=== PATIENT | male | born 1960 | race American Indian/Alaskan Native ===

== ENCOUNTER 2018-04-22 13:06 | Emergency (ER) | payer OTHER ==
--- NOTE | 2018-04-22 13:32 | C.PDOC ---
History Of Present Illness 57 y/o male presents to the ER with coworker for evaluation of right knee pain which occurred today. Patient states that he was at work when he fell into a sink hole covered by leaves. Patient reports that his left knee " bent back" and he suffered a medial knee contusion.Denies having weakness and numbness. Time Seen by Provider: 04/22/18 13:17 Chief Complaint (Nursing): Lower Extremity Problem/Injury History Per: Patient History/Exam Limitations: no limitations Onset/Duration Of Symptoms: Hrs Current Symptoms Are (Timing): Still Present Severity: Moderate Past Medical History Reviewed: Historical Data, Nursing Documentation, Vital Signs Vital Signs: Last Vital Signs Temp 97.2 F L 04/22/18 13:08 Pulse 79 04/22/18 13:08 Resp 20 04/22/18 13:08 BP 153/101 H 04/22/18 13:08 Pulse Ox 99 04/22/18 13:08 - Medical History PMH: Arthritis Other Surgeries: Hx of surgeries Family History: States: No Known Family Hx - Social History Hx Alcohol Use: No Hx Substance Use: No - Immunization History Hx Tetanus Toxoid Vaccination: No Hx Influenza Vaccination: No Hx Pneumococcal Vaccination: No Review Of Systems Except As Marked, All Systems Reviewed And Found Negative. Musculoskeletal: Positive for: Other (left knee pain) Neurological: Negative for: Weakness, Numbness Physical Exam - Physical Exam Appears: Non-toxic, No Acute Distress Skin: Normal Color, Warm, Dry Head: Atraumatic, Normacephalic Eye(s): bilateral: Normal Inspection Nose: Normal Oral Mucosa: Moist Neck: Supple Chest: Symmetrical Extremity: Normal ROM, Tenderness (tenderness to medial aspect of right knee), Other ( no laxity and no joint effusion to right knee) Neurological/Psych: Oriented x3, Normal Speech ED Course And Treatment O2 Sat by Pulse Oximetry: 99 Pulse Ox Interpretation: Normal - Other Rad R knee X-Ray: Interpreted by Me (neg) Medical Decision Making Medical Decision Making: R medial knee contusion no knee joint derrangement x-ray neg ice/NSAIDS Disposition Doctor Will See Patient In The: Office Counseled Patient/Family Regarding: Studies Performed, Diagnosis - Disposition Referrals: [facility] [Outside] [facility] [Outside] [facility] [Outside] Disposition: HOME/ ROUTINE Disposition Time: 14:07 Condition: GOOD Additional Instructions: ice packs 1/2 hour per hour, nothing hot no hot shower/hot tub motrin/advil/ibuprofen 600 mg every 6 hours as needed outpatient follow-up as needed. Instructions: Contusion (DC) Forms: [facility] (Yoruba), Work Excuse - Clinical Impression Clinical Impression: Knee contusion - Scribe Statement The provider has reviewed the documentation as recorded by the Neetaibe Isidra Taylor Provider Attestation: All medical record entries made by the Neeta[facility]gorge were at my direction and personally dictated by me. I have reviewed the chart and agree that the record accurately reflects my personal performance of the history, physical exam, medical decision making, and the department course for this patient. I have also personally directed, reviewed, and agree with the discharge instructions and disposition.
[2018-04-22 14:33] VITALS: BP 147/94; PULSE 69; RESP 18; TEMP 97.9
--- NOTE | 2018-04-22 14:47 | RAD ---
Date of service: 04/22/2018 PROCEDURE: Right Knee Radiographs. HISTORY: R medial knee contusion COMPARISON: None. FINDINGS: BONES: No fracture. Exuberant osteophytosis present. JOINTS: Arthrosis. Patellofemoral and lateral femoral tibial compartments most narrowed. JOINT EFFUSION: Suggested OTHER FINDINGS: None. IMPRESSION: No fracture or lytic lesion. 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 Comments: Study marked for PA review .
[2018-04-22 16:03] VITALS: O2SAT 99
== END 2018-04-22 14:16 | disposition home or self-care (01) ==
LOC: C.ER 13:06
DX: S80.01XA Contusion of right knee, initial encounter (principal); W17.2XXA Fall into hole, initial encounter; Y99.0 Civilian activity done for income or pay